=== PATIENT | male | born 1945 | race Caucasian/White ===

== ENCOUNTER 2017-06-01 08:21 | Emergency (ER) | payer OTHER ==
[~2017-06-01] VITALS: Ht 185.4 cm; Wt 84.0 kg
[2017-06-01 08:34] VITALS: BP 180/77; PULSE 68; RESP 18; TEMP 98; O2SAT 96
[2017-06-01] MEDS ORDERED: AMLO10TA2 PO (08:53)
[2017-06-01] MEDS ORDERED: LOVA20TA PO (08:53)
[2017-06-01] MEDS ORDERED: MULTTAB67 PO (08:53)
[2017-06-01] MEDS ORDERED: LISI40TA PO (08:53)
--- NOTE | 2017-06-01 09:11 | PD ---
HPI Chief Complaint: Cardiac Complaint Time Seen by Provider: 08:57 Travel History International Travel<30 days: No Contact w/Intl Traveler<30days: No Traveled to known affect area: No History of Present Illness HPI This patient complains of a cough. He has had a cough for 1 week. No chest pain or pressure or tightness or heaviness. No shortness of breath. He does not have any formal cardiac diagnosis is. He went to [facility] yesterday for his cough and the doctor told him that his "heart was not pumping enough" according to the patient. No testing was done. He was told to come here. Patient feels fine other than a cough. He has no edema. No alleviating factors. No exacerbating factors. PFSH Past Medical History High Cholesterol: Yes Diminished Hearing: No Hypertension: Yes Tetanus Vaccination: < 5 Years Influenza Vaccination: No ?: Not Past Surgical History Other Surgery: Yes (HERNIA SX, HYDRASEAL) Social History Alcohol Use: Yes (OCC) Tobacco Use: No Substance Use: No Allergies-Medications (Allergen,Severity, Reaction): Coded Allergies: No Known Allergies (Unverified , 06/01/17) Reported Meds & Prescriptions Reported Meds & Active Scripts Active Zithromax Z-Huseyin (Azithromycin) 250 Mg Dspk 250 Mg PO DIRECTED 500 MG (2 tabs) day 1, then 1 tab days 2-5. Reported Multiple Vitamin 1 Tab 1 Tab PO DAILY Amlodipine (Amlodipine Besylate) 10 Mg Tab 10 Mg PO DAILY Lisinopril 40 Mg Tab 40 Mg PO BID Lovastatin 20 Mg Tab 20 Mg PO DAILY Review of Systems General / Constitutional: No: Fever Eyes: No: Visual changes HENT: No: Headaches Cardiovascular: No: Chest Pain or Discomfort Respiratory: Positive: Cough, No: Shortness of Breath Gastrointestinal: No: Abdominal Pain Genitourinary: No: Dysuria Musculoskeletal: No: Pain Skin: No Rash Neurologic: No: Weakness Psychiatric: No: Depression Endocrine: No: Polydipsia Hematologic/Lymphatic: No: Easy Bruising Physical Exam Narrative GENERAL: Well-nourished, well-developed patient in no apparent distress. SKIN: Focused skin assessment reveals no rash and nodules. Skin is Warm and dry. HEAD: Atraumatic. Normocephalic. EYES: Pupils equal and round. No scleral icterus. No injection or drainage. ENT: No nasal bleeding or discharge. Mucous membranes pink and moist. NECK: Trachea midline. No JVD. CARDIOVASCULAR: Regular rate and rhythm. No murmur appreciated. RESPIRATORY: No accessory muscle use. Clear to auscultation. Breath sounds equal bilaterally. GASTROINTESTINAL: Abdomen soft, non-tender, nondistended. Hepatic and splenic margins not palpable. MUSCULOSKELETAL: No obvious deformities. No clubbing. No cyanosis. No edema. NEUROLOGICAL: Awake and alert. No obvious cranial nerve deficits. Motor grossly within normal limits. Normal speech. PSYCHIATRIC: Appropriate mood and affect; insight and judgment normal. Data Data Last Documented VS Vital Signs Date Time Temp Pulse Resp B/P (MAP) Pulse Ox O2 Delivery O2 Flow Rate FiO2 06/01/17 11:06 56 14 135/85 (102) 99 Room Air 06/01/17 08:34 98.0 Orders Orders Electrocardiogram (06/01/17 ) Chest, Single Ap (06/01/17 ) [facility] Medical Decision Making Medical Screen Exam Complete: Yes Emergency Medical Condition: Yes Medical Record Reviewed: Yes Differential Diagnosis Bronchitis, pneumonia, URI Narrative Course I have reviewed the patient's electronic medical record. I reviewed his EKG which shows sinus rhythm and no ST elevation or ectopy I reviewed his chest x-ray which shows a faint hazy illness that could be an early infiltrate Patient looks clinically well. He has no symptoms other than a cough for 1 week. Given his findings and symptom of cough I wrote him a Z-Huseyin Could be viral The patient was advised to follow up with their physician and return if they worsen. Diagnosis Primary Impression: Bronchopneumonia Additional Instructions: The patient was advised to follow up with their physician and return if they worsen. Med/Other Pt SpecificInfo: Prescription(s) given Scripts Azithromycin (Zithromax Z-Huseyin) 250 Mg Dspk 250 MG PO DIRECTED for Infection, #1 DSPK 0 Refills 500 MG (2 tabs) day 1, then 1 tab days 2-5. Prov: Caesar Parsons MD 06/01/17 Disposition: 01 DISCHARGE HOME Condition: Stable Caesar Parsons MD Jun 01, 2017 09:11
--- NOTE | 2017-06-01 09:48 | RADRPT ---
EXAM DATE/TIME: 06/01/2017 09:26 [place] COMPARISON: No previous studies available for comparison. INDICATIONS : Congestion and cough. MEDICAL HISTORY : None. SURGICAL HISTORY : None. ENCOUNTER: Initial ACUITY: 1 week PAIN SCORE: 0/10 LOCATION: Bilateral chest FINDINGS: Trace atelectasis seen at both bases. There is a possible infiltrate in the right infrahilar region. No pleural effusion seen. No pneumothorax. Heart size within normal limits. CONCLUSION: Mild bibasilar atelectasis and potential early or mild right infrahilar pneumonia. Drew Michel MD on June 01, 2017 at 9:45 Board Certified Radiologist. This report was verified electronically.
[2017-06-01 11:06] VITALS: BP 135/85; PULSE 56; RESP 14; O2SAT 99
[2017-06-01] MEDS ORDERED: ZITHTAB PO (13:05)
--- NOTE | 2017-06-01 16:13 | EKG ---
Date Performed: 06/01/2017 Time Performed: 08:45:57 PTAGE: 71 years EKG: Sinus rhythm MARKED LEFT AXIS DEVIATION ABNORMAL ECG NO PREVIOUS TRACING DOCTOR: Usama Perales Interpretating Date/Time 06/01/2017 16:10:00
== END 2017-06-01 13:17 | disposition home or self-care (01) ==
LOC: NEPC 08:21
DX: J18.0 Bronchopneumonia, unspecified organism (principal); R94.31 Abnormal electrocardiogram [ECG] [EKG]; I10 Essential (primary) hypertension; E78.00 Pure hypercholesterolemia, unspecified; Z79.899 Other long term (current) drug therapy
CPT/HCPCS: 71045; 93005